=== PATIENT | female | born 1990 ===

== ENCOUNTER 2019-09-07 13:51 | Emergency (ER) | payer OTHER, SELFPAY | END 2019-09-07 14:37 | disposition home or self-care (01) | LOC: ERS 13:51 | DX: O99.89 Other specified diseases and conditions complicating pregnancy, childbirth and the puerperium (principal); M54.5 Low back pain; Z3A.16 16 weeks gestation of pregnancy; W01.0XXA Fall on same level from slipping, tripping and stumbling without subsequent striking against object, initial encounter | CPT/HCPCS: 99283 ==